=== PATIENT | male | born 1975 | race Two or more races ===

== ENCOUNTER 2017-06-27 02:39 | Emergency (ER) | payer MEDICAID ==
[~2017-06-27] VITALS: Ht 170.2 cm; Wt 111.1 kg
[~2017-06-27 02:39] MED LIST: AMOXICILLIN500 MG ORAL; AUGMENTIN 875-1 EAC1 ORAL; IBUPROFEN600 MG ORAL; IBUPROFEN800 MG ORAL; PHENERGAN6.25 MG/5 ORAL; ZITHROMAX250 MG ORAL
[2017-06-27] MEDS ORDERED: NKM (02:47)
[2017-06-27] MEDS ORDERED: POLYTRIM EYE DR10 M1 OP (03:11)
--- NOTE | 2017-06-27 03:12 | Emergency Room Report ---
History of Present Illness General Chief Complaint: Eye Problems Source: Patient Present Illness HPI Is a 42-year-old male with no significant past medical history. He presents with chief complaint of left eye drainage. Onset 2 days ago. Now puffy and red. No nausea vomiting. Crusting. No fever chills but no nausea no vomiting Allergies: Coded Allergies: AZITHROMYCIN (Verified Allergy, Unknown, 06/27/17) Patient History Past Medical History: see triage record, old chart reviewed Past Surgical History: none Pertinent Family History: none Social History: Denies: smoking Immunizations: other Reviewed Nursing Documentation: PMH: Agreed, PSxH: Agreed Nursing Documentation-PMH Past Medical History: No Stated History Review of Systems Eye: Reports: blurred vision, discharge, Denies: eye pain ENT: Denies: ear pain, nose congestion, throat swelling Respiratory: Denies: cough, shortness of breath Cardiovascular: Denies: chest pain, palpitations Gastrointestinal: Denies: abdominal pain, diarrhea, nausea, vomiting Musculoskeletal: Denies: back pain, joint pain Skin: Denies: rash Neurological: Denies: headache, numbness Endocrine: Denies: increased thirst, increased urine Hematologic/Lymphatic: Denies: easy bruising All Other Systems: negative except mentioned in HPI Physical Exam Vital Signs Date Time Temp Pulse Resp B/P (MAP) Pulse Ox O2 Delivery O2 Flow Rate FiO2 06/27/17 02:43 97.9 69 16 143/86 99 Room Air 97.9 vitals normal Sp02 EP Interpretation: reviewed, normal General Appearance: well appearing, no apparent distress, alert Head: normocephalic, atraumatic Eyes: left eye other - Left conjunctiva injected. Puffiness to the lids. Crusting., bilateral eye PERRL, bilateral eye EOMI ENT: hearing grossly normal, normal pharynx Neck: full range of motion, supple, no meningismus Respiratory: chest non-tender, lungs clear, normal breath sounds Cardiovascular #1: regular rate, rhythm, no murmur Gastrointestinal: normal bowel sounds, non tender, no mass, no organomegaly, no bruit, non-distended Musculoskeletal: back normal, gait/station normal, normal range of motion Psychiatric: mood/affect normal Skin: warm/dry Medical Decision Making Diagnostic Impression: Primary Impression: Conjunctivitis Qualified Codes: H10.32 - Unspecified acute conjunctivitis, left eye ER Course Patient present with conjunctivitis. We'll discharge home. No evidence of foreign body or globe rupture. Last Vital Signs Date Time Temp Pulse Resp B/P (MAP) Pulse Ox O2 Delivery O2 Flow Rate FiO2 06/27/17 02:43 97.9 69 16 143/86 99 Room Air 97.9 Status: improved Disposition: HOME, SELF-CARE Condition: Stable Scripts Polymyxin B Sulf/Trimethoprim (POLYTRIM EYE DROPS) 10 Ml Drops 10 ML OP QID, #10 ML Prov: CHADD GARCIA M.D. 06/27/17 Referrals: NOT CHOSEN [facility]/,REFERRING (PCP) Patient Instructions: Bacterial Conjunctivitis, Tjys-to-Axby Additional Instructions: Treat both eyes. Followup with your Dr. in 7 days. Return if worse. CHADD GARCIA M.D. Jun 27, 2017 03:12
[2017-06-27 03:21] VITALS: BP 143/86
== END 2017-06-27 03:15 | disposition home or self-care (01) ==
LOC: EMR 02:55
DX: H10.9 Unspecified conjunctivitis (principal); Z88.1 Allergy status to other antibiotic agents
CPT/HCPCS: 99283

== ENCOUNTER 2017-11-02 20:16 | Emergency (ER) | payer MEDICAID ==
[~2017-11-02] VITALS: Ht 165.1 cm; Wt 102.1 kg
[~2017-11-02 20:16] MED LIST changes: +NKM; +POLYTRIM EYE DR10 M1 OP
[2017-11-02] MEDS ORDERED: NKM (20:31)
[2017-11-02 21:00] VITALS: BP 148/89
[2017-11-02] MEDS ORDERED: Methocarbamol 750mg tab ORAL ONE (21:15)
[2017-11-02] MEDS ORDERED: Ketorolac 30mg Inj IM ONE (21:15)
[2017-11-02] MEDS ORDERED: ROBAXIN-750750 MG PO (21:41)
[2017-11-02] MEDS ORDERED: IBUPROFEN600 MG ORAL (21:41)
[2017-11-02 21:47] VITALS: BP 148/89
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
== END 2017-11-02 21:47 | disposition home or self-care (01) ==
LOC: EMR 21:10
DX: S20.211A Contusion of right front wall of thorax, initial encounter (principal); M54.2 Cervicalgia; V43.62XA Car passenger injured in collision with other type car in traffic accident, initial encounter; Y92.410 Unspecified street and highway as the place of occurrence of the external cause; Z88.1 Allergy status to other antibiotic agents
CPT/HCPCS: 71100; 96372; 99284; J1885